=== PATIENT | female | born 1995 | race American Indian/Alaskan Native ===

== ENCOUNTER 2018-10-15 04:31 | Emergency (ER) | payer OTHER ==
[2018-10-15 04:42] VITALS: BP 125/81
[2018-10-15] MEDS ORDERED: TYLENOL ONE (04:47)
[2018-10-15] MEDS ORDERED: TYLENOL PO ONE (04:56)
[2018-10-15 05:36] LABS: Bilirubin,Urine NEG (Negative); Blood,Urine LG (Negative); Color,Urine Yellow (Yellow); HCG Qualitative,Urine Negative (Negative); Mucus,Urine 2+ /HPF; Protein,Urine <15 mg/dL mg/dL (Negative); RBC,Urine > 182.0 /HPF (0.0-6.0)
== END 2018-10-15 07:44 ==
LOC: ED 04:31
DX: R10.30 Lower abdominal pain, unspecified (principal); Z53.21 Procedure and treatment not carried out due to patient leaving prior to being seen by health care provider
CPT/HCPCS: 81001; 81025